=== PATIENT | female | born 1990 | race African-American/Black ===

== ENCOUNTER → 2016-12-05 | Outpatient (CLI) | payer OTHER | END | disposition home or self-care (01) | LOC: LABWHC1 11:49 | PROVIDERS: ATTEND Obstetrics & Gynecology | DX: Z34.82 Encounter for supervision of other normal pregnancy, second trimester (principal); Z3A.00 Weeks of gestation of pregnancy not specified | CPT/HCPCS: 36415; 82105; 82677; 84702; 86336 ==

== ENCOUNTER → 2016-12-10 | Outpatient (CLI) | payer OTHER ==
--- NOTE | 2016-12-10 20:21 | US ---
EXAMINATION TYPE: US OB anatomy trans abd DATE OF EXAM: 12/10/2016 5:28 PM COMPARISON: NONE HISTORY: Confirm dates, LGA TECHNIQUE: Transabdominal (TA) EXAM MEASUREMENTS: GESTATIONAL AGE / DATING Physician Established: not established Dates by LMP: unknown Dates by First Scan: no prior Dates by Current Scan for: (19 weeks/5 days) EDC: 05/01/17 SURVEY IUP: Single PLACENTA: Posterior PREVIA: Low Lying FERMÍN: 12.6 cm Normal CERVICAL LENGTH (transabdominal: norm > 3.0cm): 4.1 cm BIOMETRY PRESENTATION: Variable LIE: Transverse lie with head maternal LT BPD: 4.3 cm 19 weeks / 0 days HC: 16.8 cm 19 weeks / 3 days AC: 15.6 cm 20 weeks / 5 days FL: 3.4 cm 20 weeks / 5 days ESTIMATED WEIGHT IN GRAMS: 359 grams ESTIMATED WEIGHT IN LBS/OZS: 0 lbs. 13 oz. WEIGHT PERCENTAGE BASED ON HC/AC: 1.08 NORMAL FL/AC: 21.77 NORMAL RHYTHM: Normal ANATOMY SEEN (within normal limits): * Lateral Vent (< 1 cm) 0.5 cm * Cisterna Magna (< 1.1 cm) 0.3 cm * Nuchal Fold (< 0.6 cm) 0.3 cm * Cerebellum (varies with age) 1.6 cm Choroid Plexus (bilateral) Midline Falx Cavus Septi Pellucidi Four Chamber Heart Outflow tracts: LVOT/RVOT Stomach Situs Nose / Lips Diaphragm Kidneys (bilateral) Bladder Cord Insert Three Vessel Cord Longitudinal Spine Transverse Spine Arms (bilateral) Legs (bilateral) TECHNOLOGIST IMPRESSION: Single viable IUP 19wks/5days with URIEL of 05/01/17. Heart rate appears wnl as visualized in real-time, no image documented. Placenta appears low-lying IMPRESSION: There is satisfactory growth compared to the first exam of 09/06/2016. I see no complicating process. Placenta is 2 cm from the cervical os.
== END | disposition home or self-care (01) ==
LOC: RADUSMAIN 16:30
PROVIDERS: ATTEND Obstetrics & Gynecology
DX: O36.62X0 Maternal care for excessive fetal growth, second trimester, not applicable or unspecified (principal); Z3A.19 19 weeks gestation of pregnancy
CPT/HCPCS: 76811

== ENCOUNTER 2017-01-09 10:54 | Emergency (ER) | payer OTHER ==
[2017-01-09] MEDS ORDERED: SODIUM CHLORIDE 0.9% 500 ML IV STA (11:47)
[2017-01-09] MEDS ORDERED: ACETAMINOPHEN TAB 500 MG TAB PO STA (11:47)
[2017-01-09] MEDS ORDERED: cefTRIAXone 2,000 MG in SODIUM CHLORIDE 0.9% 100 ML IVPB STA (11:51)
[2017-01-09 11:55] VITALS: RESP 18
[2017-01-09 12:30] LABS: Basophils % (A) 1 %; CH 30.8; CHCM 33.7; Eosinophils # (A) 0.2 k/uL (0-0.7); Eosinophils % (A) 3 %; HCT 35.6 % (34.0-46.0); HDW 2.47; HGB 11.9 gm/dL (11.4-16.0); Luc # (Auto) 0.26; Luc % (Auto) 4; Lymphocytes # (A) 1.2 k/uL (1.0-4.8); Lymphocytes % (A) 16 %; MCH 30.7 pg (25.0-35.0); MCHC 33.4 g/dL (31.0-37.0); Mean Platelet Volume 7.8; Monocytes # (A) 0.5 k/uL (0-1.0); Monocytes % (A) 7 %; Neutrophils % (A) 70 %; RBC 3.87 m/uL (3.80-5.40); RDW 13.6 % (11.5-15.5); WBC 7.2 k/uL (3.8-10.6); WBC (Perox) 7.83
[2017-01-09 12:32] LABS: Anion Gap 12 mmol/L; Blood Urea Nitrogen 5 mg/dL (7-17); Calcium 8.9 mg/dL (8.4-10.2); Carbon Dioxide 22 mmol/L (22-30); Chloride 102 mmol/L (98-107); Glucose 89 mg/dL (74-99); Non-African American GFR(MDRD) >60 (>60 ml/min/1.73 sqM); Potassium 3.5 mmol/L (3.5-5.1); Sodium 136 mmol/L (137-145)
[2017-01-09 12:46] LABS: Appearance,Urine Cloudy (Clear); Bilirubin,Urine Negative (Negative); Glucose,Urine (UA) Negative (Negative); Ketones,Urine Trace (Negative); Leukocyte Esterase,Urine Large (Negative); Mucus,Urine Rare /hpf; Nitrite,Urine Negative (Negative); PH, Urine 6.5 (5.0-8.0); Particle Count 13489; Protein,Urine Trace (Negative); Specific Gravity,Urine 1.009 (1.001-1.035); Squamous Epithelial Cell,Urine 16 /hpf (0-4); UA Billing (MACRO vs. MICRO) MICRO; WBC,Urine 8 /hpf (0-5)
[2017-01-09] MEDS ORDERED: OSELTAMIVIR 75 MG CAP PO STA (13:50)
--- NOTE | 2017-01-09 14:12 | US ---
EXAMINATION TYPE: US OB >= 14 wk fetus second trimester DATE OF EXAM: 01/09/2017 1:02 PM COMPARISON: Prior ultrasound December 10, 2016. CLINICAL HISTORY: Pain TECHNIQUE: Transvaginal (TV) and Transabdominal (TA) GESTATIONAL AGE / DATING Physician Established: Patient unsure of due date Dates by LMP: unknown Dates by First Scan: not available Dates by Current Scan: (23 weeks/6 days) EDC: 05/02/17 SURVEY IUP: Single PLACENTA: Posterior PREVIA: No Previa FERMÍN: 14.4 cm CERVICAL LENGTH (transabdominal: norm > 3.0cm): 2.5 cm CERVICAL LENGTH (transvaginal: norm> 2.5cm): 2.9 cm (Supplemental transvaginal imaging performed to verify cervical length.) BIOMETRY PRESENTATION: Breech BPD: 5.6 cm 23. weeks / 1 days HC: 21.9 cm 23 weeks / 6 days AC: 19.4 cm 24 weeks / 1 days FL: 4.5 cm 25. weeks / 1 days ESTIMATED WEIGHT IN GRAMS: 693 grams ESTIMATED WEIGHT IN LBS/OZS: 1 lbs. 8 oz. HC/AC: 1.1 FL/AC: 23.5 HEART RATE: 147 bpm RHYTHM: Normal TECHNOLOGIST IMPRESSION: measurements as seen above Single live intrauterine gestation is redemonstrated. A breech presentation to fetus is currently see n. Amniotic fluid index remains within normal limits. There is no ultrasound evidence for placenta pr evia. Cervical length is lower limits of normal on transvaginal evaluation which is more sensitive. F etal biometry measurements are congruent. No posttraumatic finding identified. IMPRESSION: As above
--- NOTE | 2017-01-09 14:14 | US ---
EXAMINATION TYPE: US kidneys/renal and bladder DATE OF EXAM: 01/09/2017 1:26 PM COMPARISON: NONE CLINICAL HISTORY: patient with back pain. Currently second trimester EXAM MEASUREMENTS: Right Kidney: 14.1 x 5.7 x 6.6 cm Left Kidney: 13.8 x 5.8 x 6.2 cm TECHNOLOGIST IMPRESSION: Right Kidney: mild hydro, enlarged kidney Left Kidney: mild hydro, enlarged kidney Bladder: wnl No nephrolithiasis is seen. No masses are identified. The urinary bladder is anechoic. Bilateral ureteral jets are not seen. IMPRESSION: There is symmetric mild to moderate bilateral hydronephrosis could be product of enlarged uterus rela ruby to , other etiologies are not excluded.
--- NOTE | 2017-01-09 14:19 | US ---
EXAMINATION TYPE: US abdomen APPY DATE OF EXAM: 01/09/2017 1:09 PM COMPARISON: NONE CLINICAL HISTORY: RLQ pain. Known second trimester APPENDIX AP Diameter (normal < 6mm): 3 mm Measured outer wall to outer wall. TECHNOLOGIST IMPRESSION: Possible portion of appendix seen (not in its entirety), compressible, not hypervascular, no fluid, n o appendicolith visualized. Scanning of right lower quadrant shows partial visualization of tubular shaped structure measuring 3 mm in diameter' if it is appendix is within normal limits but is not completely imaged. No suspiciou s fluid collection is seen. No shadowing appendicolith is noted. IMPRESSION: As above
[2017-01-09 14:24] VITALS: TEMP 98.1
--- NOTE | 2017-01-09 14:44 | ED ---
General Adult HPI - General Chief complaint: Upper Respiratory Infection Stated complaint: 24 WEEKS PREG, FALL, AND FLU SYMPTOMS Time Seen by Provider: 01/09/17 11:34 Source: patient Mode of arrival: ambulatory Limitations: no limitations - History of Present Illness Initial comments: Him , fell 2 days ago complaining about pain in the right lower quadrant area and the flank area and she is also concerned about her baby she feels baby has not been moving well for the last couple days since her fall complaining about stuffed nose, facial pressure, facial pain, postnasal drainage , sore throat been coughing up some phlegm. Denies any neck stiffness does have a cough with mild shortness of breath and complaining with abdominal pain and right lower quadrant area as well as flank area denies any frequency urgency dysuria no symptoms of TIA or CVA - Related Data Home Medications Medication Instructions Recorded Confirmed Ciprofloxacin HCl [Cipro] 500 mg PO Q12HR 01/09/17 01/09/17 Previous Rx's Medication Instructions Recorded Amoxicillin 500 mg PO Q8H #30 capsule 01/09/17 Oseltamivir [Tamiflu] 75 mg PO Q12HR #10 cap 01/09/17 Allergies Allergy/AdvReac Type Severity Reaction Status Date / Time No Known Allergies Allergy Verified 01/09/17 11:49 Review of Systems ROS Statement: Those systems with pertinent positive or pertinent negative responses have been documented in the HPI. ROS Other: All systems not noted in ROS Statement are negative. Past Medical History Past Medical History: No Reported History History of Any Multi-Drug Resistant Organisms: MRSA Date of last positivie culture/infection: 05/29/2015 MDRO Source:: left arm Past Surgical History: No Surgical Hx Reported Past Psychological History: No Psychological Hx Reported Smoking Status: Never smoker Past Alcohol Use History: Occasional Past Drug Use History: None Reported General Exam - General Exam Comments Initial Comments: General: The patient is awake and alert, in no distress, and does not appear acutely ill. Skin: Skin is warm and dry and no rashes or lesions are noted. Eye: Pupils are equal, round and reactive to light, extra-ocular movements are intact; there is normal conjunctiva bilaterally. Ears, nose, mouth and throat: There are moist mucous membranes and no oral lesions. Exam is consistent with a sinusitis Neck: The neck is supple, there is no tenderness or JVD. Cardiovascular: There is a regular rate and rhythm. No murmur, rub or gallop is appreciated. Respiratory: To auscultation bilateral, no wheezing no rhonchi no distress respiratory higgins noticed Gastrointestinal: Tender in the right lower quadrant area and the right flank area Back: There is no tenderness to palpation in the midline. There is no obvious deformity. Musculoskeletal: Normal ROM, no tenderness, There is no pedal edema. There is no calf tenderness or swelling. No cords were appreciated. Neurological: CN II-XII intact, Cranial nerves III through XII are intact. There are no obvious motor or sensory deficits. Coordination appears grossly intact. Speech is normal. Psychiatric: Cooperative, appropriate mood & affect, normal judgment. Limitations: no limitations Course Vital Signs 01/09/17 01/09/17 01/09/17 11:09 11:49 14:23 Temperature 100.9 F H 98.1 F Pulse Rate 120 H 91 Respiratory 20 18 18 Rate Blood Pressure 133/69 124/70 O2 Sat by Pulse 99 100 Oximetry Labs and imaging, was reviewed, on arrival noticed that her temperature was 100.9 and the prostate was 120, she has the obvious sinusitis and she was coughing but unfortunately can't do an x-ray because she is and she was started with the Rocephin 2 g empirically cover pneumonia as well as sinusitis as well as UTIs and her urine has is positive and she is tender over the right flank area of the Rocephin will cover her if this is early pilonidal. Her CBC is within normal range compressive metabolic is within normal range urinalysis is positive strep is negative SOUNDS showed what is negative for appendix noticed mild hydronephrosis bilaterally most probably secondary to enlarged uterus white count is negative and she is positive for influenza I did talk to pharmacy in detail and the pharmacist was very kindly called me back saying the CDC recommends treating the ladies with Tamiflu no Tamiflu is a category C this was discussed with the patient and the patient is not comfortable taking Tamiflu. She was sent home on amoxicillin which is compatible with a for sinusitis and a urine be cultured since still then she will continue the amoxicillin unless culture and sensitivity and rectus in a different direction she be given a prescription of Tamiflu will respect her wishes if she wants to take him or not she is advised follow-up with her family doctor or return to the ER if symptoms get worse Medical Decision Making - Lab Data Result diagrams: 01/09/17 12:10 01/09/17 12:10 Lab Results 01/09/17 01/09/17 01/09/17 Range/Units 12:00 12:00 12:00 WBC (3.8-10.6) k/uL RBC (3.80-5.40) m/uL Hgb (11.4-16.0) gm/dL Hct (34.0-46.0) % MCV (80.0-100.0) fL MCH (25.0-35.0) pg MCHC (31.0-37.0) g/dL RDW (11.5-15.5) % Plt Count (150-450) k/uL Neutrophils % % Lymphocytes % % Monocytes % % Eosinophils % % Basophils % % Neutrophils # (1.3-7.7) k/uL Lymphocytes # (1.0-4.8) k/uL Monocytes # (0-1.0) k/uL Eosinophils # (0-0.7) k/uL Basophils # (0-0.2) k/uL Sodium (137-145) mmol/L Potassium (3.5-5.1) mmol/L Chloride (98-107) mmol/L Carbon Dioxide (22-30) mmol/L Anion Gap mmol/L BUN (7-17) mg/dL Creatinine (0.52-1.04) mg/dL Est GFR (MDRD) Af Amer (>60 ml/min/1.73 sqM) Est GFR (MDRD) Non-Af (>60 ml/min/1.73 sqM) Glucose (74-99) mg/dL Calcium (8.4-10.2) mg/dL Urine Color Yellow Urine Appearance Cloudy H (Clear) Urine pH 6.5 (5.0-8.0) Ur Specific [place] 1.009 (1.001-1.035) Urine Protein Trace H (Negative) Urine Glucose (UA) Negative (Negative) Urine Ketones Trace H (Negative) Urine Blood Negative (Negative) Urine Nitrate Negative (Negative) Urine Bilirubin Negative (Negative) Urine Urobilinogen 3.0 (<2.0) mg/dL Ur Leukocyte Esterase Large H (Negative) Urine WBC 8 H (0-5) /hpf Ur Squamous Epith Cells 16 H (0-4) /hpf Urine Mucus Rare H (None) /hpf Influenza Type A RNA Not Detected (Not Detectd) Influenza Type B (PCR) Detected H (Not Detectd) Group A Strep Rapid Negative (Negative) 01/09/17 01/09/17 Range/Units 12:10 12:10 WBC 7.2 (3.8-10.6) k/uL RBC 3.87 (3.80-5.40) m/uL Hgb 11.9 (11.4-16.0) gm/dL Hct 35.6 (34.0-46.0) % MCV 92.0 (80.0-100.0) fL MCH 30.7 (25.0-35.0) pg MCHC 33.4 (31.0-37.0) g/dL RDW 13.6 (11.5-15.5) % Plt Count 199 (150-450) k/uL Neutrophils % 70 % Lymphocytes % 16 % Monocytes % 7 % Eosinophils % 3 % Basophils % 1 % Neutrophils # 5.0 (1.3-7.7) k/uL Lymphocytes # 1.2 (1.0-4.8) k/uL Monocytes # 0.5 (0-1.0) k/uL Eosinophils # 0.2 (0-0.7) k/uL Basophils # 0.0 (0-0.2) k/uL Sodium 136 L (137-145) mmol/L Potassium 3.5 (3.5-5.1) mmol/L Chloride 102 (98-107) mmol/L Carbon Dioxide 22 (22-30) mmol/L Anion Gap 12 mmol/L BUN 5 L (7-17) mg/dL Creatinine 0.45 L (0.52-1.04) mg/dL Est GFR (MDRD) Af Amer >60 (>60 ml/min/1.73 sqM) Est GFR (MDRD) Non-Af >60 (>60 ml/min/1.73 sqM) Glucose 89 (74-99) mg/dL Calcium 8.9 (8.4-10.2) mg/dL Urine Color Urine Appearance (Clear) Urine pH (5.0-8.0) Ur Specific [place] (1.001-1.035) Urine Protein (Negative) Urine Glucose (UA) (Negative) Urine Ketones (Negative) Urine Blood (Negative) Urine Nitrate (Negative) Urine Bilirubin (Negative) Urine Urobilinogen (<2.0) mg/dL Ur Leukocyte Esterase (Negative) Urine WBC (0-5) /hpf Ur Squamous Epith Cells (0-4) /hpf Urine Mucus (None) /hpf Influenza Type A RNA (Not Detectd) Influenza Type B (PCR) (Not Detectd) Group A Strep Rapid (Negative) Disposition Clinical Impression: Fever, Tachycardia, , Influenza, Influenza B, Cystitis Disposition: HOME SELF-CARE Condition: Good Instructions: Upper Respiratory Infection (ED) Prescriptions: Amoxicillin 500 mg PO Q8H #30 capsule Oseltamivir [Tamiflu] 75 mg PO Q12HR #10 cap
[2017-01-09 15:28] VITALS: BP 130/63; PULSE 114
== END 2017-01-09 15:30 | disposition home or self-care (01) ==
LOC: EC 10:54
DX: O23.12 Infections of bladder in pregnancy, second trimester (principal); O26.92 Pregnancy related conditions, unspecified, second trimester; J10.1 Influenza due to other identified influenza virus with other respiratory manifestations; R00.0 Tachycardia, unspecified; Z3A.24 24 weeks gestation of pregnancy; Z86.14 Personal history of Methicillin resistant Staphylococcus aureus infection; Z91.81 History of falling
CPT/HCPCS: 99284; 96365; 36415; 80048; 85025; 81001; 87086; 87081; 87430; 87502; 76705; 76805; 76817; 76770; J0696

== ENCOUNTER → 2017-03-03 | Outpatient (CLI) | payer OTHER ==
[2017-03-03 14:33] LABS: CH 30.3; CHCM 32.6; HCT 35.2 % (34.0-46.0); HDW 2.79; HGB 11.4 gm/dL (11.4-16.0); MCH 30.4 pg (25.0-35.0); MCHC 32.5 g/dL (31.0-37.0); MCV 93.6 fL (80.0-100.0); Mean Platelet Volume 7.5; RBC 3.76 m/uL (3.80-5.40); RDW 13.3 % (11.5-15.5); WBC 8.2 k/uL (3.8-10.6)
[2017-03-03 14:38] LABS: Non-African American GFR(MDRD) >60 (>60 ml/min/1.73 sqM)
[2017-03-03 15:09] LABS: Hepatitis B Surface Ag Index 0.06
== END | disposition home or self-care (01) ==
LOC: LABWHC1 12:49
PROVIDERS: ATTEND Obstetrics & Gynecology
DX: Z34.82 Encounter for supervision of other normal pregnancy, second trimester (principal); Z3A.00 Weeks of gestation of pregnancy not specified
CPT/HCPCS: 36415; 82565; 82950; 85027; 86762; 86780; 86850; 86900; 86901; 87340

== ENCOUNTER → 2017-03-07 | Outpatient (CLI) | payer OTHER ==
[2017-03-07 12:36] LABS: Glucose 3 Hour, Gest 74 mg/dL
== END | disposition home or self-care (01) ==
LOC: LABWHC1 08:20
PROVIDERS: ATTEND Obstetrics & Gynecology
DX: O24.419 Gestational diabetes mellitus in pregnancy, unspecified control (principal); Z3A.00 Weeks of gestation of pregnancy not specified
CPT/HCPCS: 36415; 82951; 82952

== ENCOUNTER 2017-04-19 04:45 | Inpatient (IN) | payer OTHER ==
[2017-04-19 05:04] VITALS: BMI 31.8
[2017-04-19] MEDS ORDERED: LIDOCAINE 1% (PF) 10 MG/ML (30 ML SDV) SQ PRN (05:04)
[2017-04-19] MEDS ORDERED: METHYLERGONOVINE 0.2 MG/ML 1 ML AMP IM PRN (05:04)
[2017-04-19] MEDS ORDERED: TERBUTALINE 1 MG/ML VIAL SQ PRN (05:04)
[2017-04-19] MEDS ORDERED: OXYTOCIN 10 UNIT/ML 1 ML VIAL IM PRN (05:04)
[2017-04-19] MEDS ORDERED: CARBOPROST TROMETHAMINE 250 MCG/ML 1 ML AMP IM PRN (05:04)
[2017-04-19] MEDS: LACTATED RINGERS 1,000 ML IV SCH ×3 (05:17→07:22)
[2017-04-19 05:26] LABS: Basophils % (A) 0 %; CH 29.3; CHCM 32.5; Eosinophils # (A) 0.2 k/uL (0-0.7); Eosinophils % (A) 2 %; HCT 34.4 % (34.0-46.0); HDW 2.88; HGB 11.4 gm/dL (11.4-16.0); Luc # (Auto) 0.38; Luc % (Auto) 3; Lymphocytes # (A) 2.7 k/uL (1.0-4.8); Lymphocytes % (A) 24 %; MCH 29.9 pg (25.0-35.0); MCV 90.7 fL (80.0-100.0); Monocytes # (A) 0.6 k/uL (0-1.0); Monocytes % (A) 5 %; Neutrophils # (A) 7.2 k/uL (1.3-7.7); Neutrophils % (A) 65 %; RDW 13.9 % (11.5-15.5); WBC 11.1 k/uL (3.8-10.6); WBC (Perox) 11.48
--- NOTE | 2017-04-19 05:57 | P.HPOB ---
History of Present Illness H&P Date: 04/19/17 Chief Complaint: Contractions This is a 27-year-old female 3 para 2 with an estimated date of confinement of 04/26/2017, estimated gestational age of 39-0/7 weeks, who presents to labor and delivery with complaints of contractions that began about 245 this morning. She denies any rupture of membranes however she has noted some bloody show. Her care has been with Dr. Eirckson and has been uncomplicated per patient. record is not available at the time of this dictation. labs: Blood type-O+ Rubella-nonimmune Hepatitis B surface antigen-negative Group B streptococcus-negative Syphilis antibody-negative One hour Glucola-131, three-hour Glucola within normal limits Obstetrical history: . History of 2 vaginal deliveries at term. Review of Systems Constitutional: Denies chills, Denies fever Eyes: denies blurred vision, denies pain Ears, nose, mouth and throat: Denies headache, Denies sore throat Cardiovascular: Denies chest pain, Denies shortness of breath Respiratory: Denies cough Gastrointestinal: Reports abdominal pain (Contractions) Genitourinary: Reports pelvic pain, Reports Musculoskeletal: Denies myalgias Integumentary: Denies pruritus, Denies rash Neurological: Denies numbness, Denies weakness Past Medical History Past Medical History: No Reported History History of Any Multi-Drug Resistant Organisms: MRSA Date of last positivie culture/infection: 05/29/2015 MDRO Source:: left arm Past Surgical History: No Surgical Hx Reported Past Anesthesia/Blood Transfusion Reactions: No Reported Reaction Past Psychological History: No Psychological Hx Reported Smoking Status: Never smoker Past Alcohol Use History: None Reported Past Drug Use History: None Reported - Past Family History Mother Family Medical History: No Reported History Medications and Allergies Home Medications Medication Instructions Recorded Confirmed Type Pnv,Calcium 72/Iron/Folic Acid 1 tab PO DAILY 04/19/17 04/19/17 History [ Plus Tablet] Allergies Allergy/AdvReac Type Severity Reaction Status Date / Time No Known Allergies Allergy Verified 04/19/17 04:59 Exam Osteopathic Statement: *. No significant issues noted on an osteopathic structural exam other than those noted in the History and Physical/Consult. - Vital Signs Vital signs: Vital Signs Temp Pulse Resp BP Pulse Ox 04/19/17 05:00 96.6 F L 90 15 120/91 100 Intake and Output 04/18/17 04/18/17 04/19/17 14:59 22:59 06:59 Other: Weight 86.636 kg Patient Weight 04/19/17 06:59 Weight 86.636 kg HEENT: Within normal limits Heart: Regular rate and rhythm Lungs: Clear to auscultation bilaterally Abdomen: Cervix: 7 cm/90%/-2 station heart tones: Reactive Contractions: Every 3-5 minutes Extremities: Negative Homans Results Result Diagrams: 04/19/17 05:20 Abnormal Lab Results - Last 24 Hours (Table) 04/19/17 Range/Units 05:20 WBC 11.1 H (3.8-10.6) k/uL Assessment and Plan (1) 39 weeks gestation of Status: Acute Plan: Plan is admission for active labor. Expectant management.
[2017-04-19] MEDS ORDERED: Acetaminophen-Codeine 300-30mg TAB PO PRN ×2 (08:37)
[2017-04-19] MEDS ORDERED: diphenhydrAMINE 25 MG CAP PO PRN (08:37)
[2017-04-19] MEDS ORDERED: BENZOCAINE SPRAY 57GM TOPICAL PRN (08:37)
[2017-04-19] MEDS ORDERED: ZOLPIDEM 5 MG TAB PO PRN (08:37)
[2017-04-19] MEDS ORDERED: MEASLES-MUMPS-RUBELLA VACC/PF 12,500 UNIT/0.5 ML VIAL SQ ONE (08:37)
[2017-04-19] MEDS ORDERED: OXYTOCIN 20 UNITS/1000 ML NS 1,000 ML IV SCH (08:37)
[2017-04-19] MEDS ORDERED: diphenhydrAMINE 50 MG/ML 1 ML VIAL IVP PRN ×2 (08:37)
[2017-04-19] MEDS ORDERED: LANOLIN CREAM 5 GM TUBE TOPICAL PRN (08:37)
[2017-04-19] MEDS ORDERED: SIMETHICONE 80 MG CHEWABLE PO PRN (08:37)
[2017-04-19] MEDS ORDERED: ACETAMINOPHEN TAB 325 MG TAB PO PRN (08:37)
[2017-04-19] MEDS ORDERED: HYDROCORTISONE 2.5% RECTAL CREAM 30 GM TUBE RECTAL PRN (08:37)
[2017-04-19] MEDS ORDERED: WITCH HAZEL 1 EACH MED..PAD TOPICAL PRN (08:37)
[2017-04-19] MEDS ORDERED: diphenhydrAMINE 50 MG CAP PO PRN (08:37)
--- NOTE | 2017-04-19 08:42 | P.PROBDLV ---
Vaginal Delivery Note - . Vaginal Delivery Note: The patient progressed to complete dilation after a small amount of oxytocin augmentation. 's head came to a crown and then delivered across the perineum followed by the anterior shoulder. Nuchal cord times one was reduced around the 's head and nose and mouth were bulb suctioned. With one further push, the remainder the infant easily delivered and was placed on mother 's abdomen. Brisk cry was noted immediately. Cord was clamped and cut and was taken to warmer for evaluation. A viable female was noted with scores of 9 at 1 minute and 9 at 5 minutes and weight of 7 lbs. 3 oz. Inspection of the perineum revealed no perineal lacerations. Placenta did not separate after approximately 15 minutes. Therefore gloved hand was placed into the intrauterine cavity and the placenta was manually removed. Three-vessel cord is noted. There were several pieces of membrane were removed separately. Once no further membrane was noted, the oxytocin was opened up and uterus contracted well. Estimated blood loss was approximate 200 mL's. Both mother and are in stable condition.
[2017-04-19] MEDS: IBUPROFEN 600 MG TAB PO PRN ×2 (08:57→18:49)
[2017-04-19] MEDS: SENNOSIDES-DOCUSATE SODIUM 1 EACH TAB PO SCH (14:32)
[2017-04-19] MEDS: PRENATAL VIT-IRON-FOLIC ACID 1 EACH CAP PO SCH (16:20)
[2017-04-20] MEDS: IBUPROFEN 600 MG TAB PO PRN ×3 (01:50→13:40)
[2017-04-20 07:47] LABS: Basophils % (A) 0 %; CH 29.8; CHCM 32.9; Eosinophils # (A) 0.2 k/uL (0-0.7); Eosinophils % (A) 1 %; HDW 2.92; Luc # (Auto) 0.26; Luc % (Auto) 2; Lymphocytes # (A) 2.9 k/uL (1.0-4.8); Lymphocytes % (A) 23 %; MCH 29.9 pg (25.0-35.0); MCHC 32.7 g/dL (31.0-37.0); MCV 91.2 fL (80.0-100.0); Mean Platelet Volume 7.4; Monocytes # (A) 0.6 k/uL (0-1.0); Monocytes % (A) 5 %; Neutrophils # (A) 8.9 k/uL (1.3-7.7); Neutrophils % (A) 69 %; RBC 3.29 m/uL (3.80-5.40); RDW 14.1 % (11.5-15.5); WBC 12.9 k/uL (3.8-10.6); WBC (Perox) 13.57
[2017-04-20 07:48] LABS: HGB 9.8 gm/dL (11.4-16.0)
--- NOTE | 2017-04-20 08:03 | P.DS ---
Providers Date of admission: 04/19/17 04:53 Expected date of discharge: 04/20/17 Attending physician: Jerrod Erickson Primary care physician: Stated None - Discharge Diagnosis(es) (1) 39 weeks gestation of Current Visit: Yes Status: Acute Hospital Course: This is a 27-year-old female 3 para 2 at 39-0/7 weeks who presented with active labor. She delivered vaginally a viable female infant with scores of 9 at 1 minute 9 at 5 minutes and weight of 7 lbs. 3 oz. on . Her course is been essentially uncomplicated. She states her lochia is moderate area she does pass some small clots. Pain is well- controlled with ibuprofen and occasional Tylenol 3. She is bottle feeding. Vital signs are stable. Abdomen is soft with fundus firm and nontender. Extremities show negative Homans. Impression is status post vaginal delivery day #1. Plan is to discharge home today. Routine instructions are given. She will be given prescriptions for ibuprofen and Tylenol 3 to go home with. She is advised follow-up Dr. Erickson in 6 weeks for check. She is advised to call the office if she has any further questions or concerns prior to her appointment time. Procedures: Spontaneous vaginal delivery of a viable female infant on 04/19/2017 Patient Condition at Discharge: Stable Plan - Discharge Summary New Discharge Prescriptions: New Acetaminophen-Codeine 300-30mg [Tylenol w/codeine #3] 1 each PO Q4HR PRN #30 tab PRN Reason: Mild Pain exceeding Tylenol Ibuprofen [Motrin] 600 mg PO Q6HR PRN #60 tab PRN Reason: Mild Pain Or Fever >= 100.5 Continue Pnv,Calcium 72/Iron/Folic Acid [ Plus Tablet] 1 tab PO DAILY Discharge Medication List Pnv,Calcium 72/Iron/Folic Acid [ Plus Tablet] 1 tab PO DAILY 04/19/17 [ History] Acetaminophen-Codeine 300-30mg [Tylenol w/codeine #3] 1 each PO Q4HR PRN #30 tab 04/20/17 [Rx] Ibuprofen [Motrin] 600 mg PO Q6HR PRN #60 tab 04/20/17 [Rx] Follow up Appointment(s)/Referral(s): Jerrod Erickson DO [Doctor of Osteopathic Medicine] - 6 Weeks Activity/Diet/Wound Care/Special Instructions: Instructions 1. Do not begin any exercise program for 3 weeks. 2. Do not resume sexual relations for 3 weeks or longer if uncomfortable. 3. You may take tub baths or showers at any time. 4. You may use tampons if desired after 3 weeks. 5. Keep the area of episiotomy (stitches) clean and dry. 6. If you are not nursing, wear a good fitting, supportive bra during the day and limit fluid intake for at least 1 week to prevent breast engorgement. 7. Call the office, [phone], within the next week to make appointment for your 6 week checkup if it has not already been made. 8. Report any of the following occurrences to the doctor promptly: a. Heavy, excessive bleeding b. Chills, fever c. Burning or frequency of urination d. Pain or redness and breasts if nursing e. Increasing pain or swelling in episiotomy (stitches). In addition to the above instructions, the following additional should be followed: 1. No heavy lifting or straining (exercising) until after 6 week checkup. 2. Keep abdominal incision clean and dry: You may wear a dressing if more comfortable. 3. Make office appointment for 10 days after going home or as instructed by her doctor. Discharge Disposition: HOME SELF-CARE
[2017-04-20] MEDS ORDERED: medroxyPROGESTERone 150 MG/ML 1ML VIAL IM ONE (08:07)
[2017-04-20] MEDS: PRENATAL VIT-IRON-FOLIC ACID 1 EACH CAP PO SCH (08:09)
[2017-04-20] MEDS: SENNOSIDES-DOCUSATE SODIUM 1 EACH TAB PO SCH ×2 (08:09→08:50)
[2017-04-20 08:56] VITALS: BP 114/70; PULSE 85; RESP 16; TEMP 98.4
== END 2017-04-20 13:50 | disposition home or self-care (01) | DRG 775 ==
LOC: FBPOP 04:45 → 4FBP 04:53
PROVIDERS: ADMIT Obstetrics & Gynecology; ATTEND Obstetrics & Gynecology
PROC: 10E0XZZ Delivery of Products of Conception, External Approach (ICD-10-PCS; principal; 2017-04-19)
DX: O69.81X0 Labor and delivery complicated by cord around neck, without compression, not applicable or unspecified (principal); Z86.14 Personal history of Methicillin resistant Staphylococcus aureus infection; Z37.0 Single live birth; Z3A.39 39 weeks gestation of pregnancy
CPT/HCPCS: 85025; 88307; 90707

== ENCOUNTER → 2018-01-27 | Outpatient (CLI) | payer OTHER | END | disposition home or self-care (01) | LOC: LABWHC1 10:27 | PROVIDERS: ATTEND Obstetrics & Gynecology | DX: N91.2 Amenorrhea, unspecified (principal) | CPT/HCPCS: 36415; 84702 ==